=== PATIENT | female | born 1990 | race Caucasian/White ===

== ENCOUNTER 2017-06-03 13:36 | Emergency (ER) | payer SELFPAY ==
[2017-06-03] MEDS ORDERED: Ibuprofen 400 MG Tab PO ONE (13:55)
--- NOTE | 2017-06-03 13:55 | EDM.PDOC ---
ED HPI GENERAL MEDICAL PROBLEM - General Chief Complaint: Fever Stated Complaint: FEVER Time Seen by Provider: 06/03/17 13:52 Source of Information: Reports: Patient History Limitations: Reports: No Limitations - History of Present Illness INITIAL COMMENTS - FREE TEXT/NARRATIVE: HISTORY AND PHYSICAL: 26-year-old female presenting with cough and flulike symptoms History of Present Illness: []Patient has been sick for the last 2-1/2-3 days Patient started out with feeling heaviness in her chest and coughing now has been running a fever taking [place] flu medication Review of Systems: As per history of present illness and below otherwise all systems reviewed and negative. Past medical history: As per history of present illness and as reviewed below otherwise noncontributory. Surgical history: As per history of present illness and as reviewed below otherwise noncontributory. Social history: No reported history of drug or alcohol abuse. Family history: As per history of present illness and as reviewed below otherwise noncontributory. Physical exam: Alert and oriented young woman who answers questions appropriately she is speaking quite Hoarsely and coughs with speaking. HEENT: Atraumatic, normocehpalic, pupils reactive, negative for conjunctival pallor or scleral icterus, mucous membranes moist, throat clear, neck supple, nontender, trachea midline. Mild erythema noted to tonsillar area bilaterally Lungs: Clear to auscultation, breath sounds equal bilaterally, chest non tender. Heart: S1S2, regular, negative for clicks, rubs, or JVD. Abdomen: Soft, nondistended, nontender. Negative for masses or hepatossplenmegaly. Negative for costovertebral tenderness. Pelvis: Stable nontender. Genitourinary: Deferred. Rectal: Deferred Extremities: Atraumatic, negative for cords or calf pain. Neurovascular unremarkable. Neuro: Awake, alert, oriented. Cranial nerves II through XII unremarkable. Cerebellum unremarkable. Motor and sensory unremarkable throughout. Exam nonfocal. Discussed with the patient that she is positive for flu Diagnostics: [Influenza rapid strep] Therapeutics: [Motrin] Impression: [Influenza a] Plan: [Discharged to home Place on Tamiflu 75 mg twice a day 5 days Continue with your symptomatic cares for discomfort Return to emergency room with your symptoms worsen Follow-up with your PCP next week ] Definitive disposition and diagnosis as appropriate pending reevaluation and review of above. Onset: Gradual Duration: Day(s): (3), Getting Worse Location: Reports: Chest Rt. Ear Pain Score (Numeric/FACES): 4 - Related Data Allergies Allergy/AdvReac Type Severity Reaction Status Date / Time No Known Allergies Allergy Verified 06/03/17 13:52 Home Meds: Home Meds Oseltamivir [Tamiflu] 75 mg PO BID #10 cap 06/03/17 [Rx] ED ROS ENT - Review of Systems Review Of Systems: ROS reveals no pertinent complaints other than HPI. ED EXAM, ENT - Physical Exam Exam: See Below (see dictation) Course - Vital Signs Last Recorded V/S: Last Vital Signs Temp 37.8 C 06/03/17 14:19 Pulse 117 H 06/03/17 13:45 Resp 18 06/03/17 13:45 BP 119/69 06/03/17 13:45 Pulse Ox 99 06/03/17 13:45 - Orders/Labs/Meds Orders: Active Orders 24 hr Category Date Time Status CULTURE STREP A CONFIRMATION [RM] Stat Lab 06/03/17 13:45 Results STREP SCRN A RAPID W CULT CONF [RM] Stat Lab 06/03/17 13:45 Results Meds: Medications Discontinued Medications Generic Name Dose Route Start Last Admin Trade Name Freq PRN Reason Stop Dose Admin Ibuprofen 400 mg 06/03/17 13:55 06/03/17 14:19 Motrin PO 06/03/17 13:56 400 mg ONETIME ONE Administration Departure - Departure Time of Disposition: 14:45 Disposition: Home, Self-Care 01 Condition: Good Clinical Impression: Influenza - Discharge Information Prescriptions: Oseltamivir [Tamiflu] 75 mg PO BID #10 cap Referrals: PCP,None [Primary Care Provider] - Forms: ED Department Discharge Additional Instructions: The following information is given to patients seen in the emergency department who are being discharged to home. This information is to outline your options for follow-up care. We provide all patients seen in our emergency department with a follow-up referral. The need for follow-up, as well as the timing and circumstances, are variable depending upon the specifics of your emergency department visit. If you don't have a primary care physician on staff, we will provide you with a referral. We always advise you to contact your personal physician following an emergency department visit to inform them of the circumstance of the visit and for follow-up with them and/or the need for any referrals to a consulting specialist. The emergency department will also refer you to a specialist when appropriate. This referral assures that you have the opportunity for followup care with a specialist. All of these measure are taken in an effort to provide you with optimal care, which includes your followup. Under all circumstances we always encourage you to contact your private physician who remains a resource for coordinating your care. When calling for followup care, please make the office aware that this follow-up is from your recent emergency room visit. If for any reason you are refused follow-up, please contact the [facility] emergency department at and asked to speak to the emergency department charge nurse. You have the flu Tamiflu was prescribed for you to take twice daily Follow-up with your primary care provider next week - My Orders Last 24 Hours: My Active Orders 06/03/17 13:45 CULTURE STREP A CONFIRMATION [RM] Stat STREP SCRN A RAPID W CULT CONF [RM] Stat - Assessment/Plan Last 24 Hours: My Active Orders 06/03/17 13:45 CULTURE STREP A CONFIRMATION [RM] Stat STREP SCRN A RAPID W CULT CONF [RM] Stat
== END 2017-06-03 14:57 | disposition home or self-care (01) ==
LOC: MW.ED 13:36
DX: J10.1 Influenza due to other identified influenza virus with other respiratory manifestations (principal)
CPT/HCPCS: 87081; 87804; 87880; 99283; A9270

== ENCOUNTER 2020-01-01 22:33 | Emergency (ER) | payer MEDICAID ==
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
== END 2020-01-01 23:45 | disposition home or self-care (01) ==
LOC: MW.ED 22:33
DX: O9A.211 Injury, poisoning and certain other consequences of external causes complicating pregnancy, first trimester (principal); S10.91XA Abrasion of unspecified part of neck, initial encounter; Y08.89XA Assault by other specified means, initial encounter; Y92.009 Unspecified place in unspecified non-institutional (private) residence as the place of occurrence of the external cause; Z3A.12 12 weeks gestation of pregnancy
CPT/HCPCS: 99283

== ENCOUNTER 2020-07-11 00:26 | Inpatient (IN) | payer MEDICAID ==
[2020-07-11] MEDS ORDERED: Misoprostol 25 MCG (1/4 of 100 MCG) Tab VAG PRN ×2 (01:46→06:00)
[2020-07-11] MEDS ORDERED: Lidocaine 1% 50 ML MDV INJECT PRN (01:46)
[2020-07-11] MEDS ORDERED: Water For Irrigation,Sterile 1,000 ML Container IRR PRN (01:46)
[2020-07-11] MEDS ORDERED: Ondansetron 4 MG/2 ML SDV IVPUSH PRN (01:46)
[2020-07-11] MEDS ORDERED: Misoprostol 25 MCG (1/4 of 100 MCG) Tab PO PRN ×2 (01:46→06:00)
[2020-07-11] MEDS ORDERED: Sodium Chloride 0.9% 2.5 ML Syringe FLUSH PRN (01:46)
[2020-07-11] MEDS ORDERED: Nalbuphine 10 MG/1 ML Vial IVPUSH PRN (01:46)
[2020-07-11] MEDS ORDERED: Sodium Chloride 0.9% 10 ML SDV IV PRN (01:46)
[2020-07-11] MEDS ORDERED: Misoprostol 200 MCG Tab PO PRN (01:46)
[2020-07-11] MEDS ORDERED: Methylergonovine 0.2 MG/1 ML Amp IM PRN (01:46)
[2020-07-11] MEDS ORDERED: Tranexamic Acid 1,000 MG in Sodium Chloride 0.9% 100 ML IV PRN (01:46)
[2020-07-11] MEDS ORDERED: Butorphanol 1 MG/ML SDV IVPUSH PRN (01:46)
[2020-07-11] MEDS ORDERED: Sodium Chloride 0.9% 10 ML Syringe FLUSH PRN (01:46)
[2020-07-11] MEDS ORDERED: Carboprost Tromethamine 250 MCG/1 ML Amp IM PRN (01:46)
[2020-07-11] MEDS ORDERED: Terbutaline 1 MG/ML SDV SUBCUT PRN (01:46)
[2020-07-11] MEDS ORDERED: Oxytocin/0.9 % Sodium Chloride 30 UNIT/500 ML BAG IV SCH ×2 (02:00)
[2020-07-11] MEDS: Lactated Ringers 1,000 ML IV SCH ×3 (04:07→08:04)
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
[2020-07-11] MEDS ORDERED: Ropivacaine HCl/PF 100 ML ONE (07:02)
[2020-07-11] MEDS ORDERED: fentaNYL 100 MCG/2 ML SDV ONE (07:02)
--- NOTE | 2020-07-11 07:55 | PCM.PREANE ---
Preanesthetic Assessment - Anesthesia/Transfusion/Family Hx Anesthesia History: Prior Anesthesia Without Reaction Family History of Anesthesia Reaction: No Transfusion History: No Prior Transfusion(s) - Physical Assessment NPO Status Date: 07/11/20 NPO Status Time: 00:05 Height: 1.6 m Weight: 61.235 kg ASA Class: 2 - Lab Values: Laboratory Last Values WBC 7.86 K/uL (4.0-11.0) 07/11/20 01:20 RBC 3.42 M/uL (4.30-5.90) L 07/11/20 01:20 Hgb 11.5 g/dL (12.0-16.0) L 07/11/20 01:20 Hct 33.6 % (36.0-46.0) L 07/11/20 01:20 MCV 98.2 fL (80.0-98.0) H 07/11/20 01:20 MCH 33.6 pg (27.0-32.0) H 07/11/20 01:20 MCHC 34.2 g/dL (31.0-37.0) 07/11/20 01:20 RDW Std Deviation 49.7 fl (28.0-62.0) 07/11/20 01:20 RDW Coeff of Roman 14 % (11.0-15.0) 07/11/20 01:20 Plt Count 189 K/uL (150-400) 07/11/20 01:20 MPV 12.00 fL (7.40-12.00) 07/11/20 01:20 Nucleated RBC % 0.0 /100WBC 07/11/20 01:20 Nucleated RBCs # 0 K/uL 07/11/20 01:20 Urine Opiates Screen NEGATIVE (NEGATIVE) 07/11/20 04:00 Ur Oxycodone Screen NEGATIVE (NEGATIVE) 07/11/20 04:00 Urine Methadone Screen NEGATIVE (NEGATIVE) 07/11/20 04:00 Ur Barbiturates Screen NEGATIVE (NEGATIVE) 07/11/20 04:00 Ur Phencyclidine Scrn NEGATIVE (NEGATIVE) 07/11/20 04:00 Ur Amphetamine Screen NEGATIVE (NEGATIVE) 07/11/20 04:00 U Methamphetamines Scrn NEGATIVE (NEGATIVE) 07/11/20 04:00 U Benzodiazepines Scrn NEGATIVE (NEGATIVE) 07/11/20 04:00 U Cocaine Metab Screen NEGATIVE (NEGATIVE) 07/11/20 04:00 U Marijuana (THC) Screen NEGATIVE (NEGATIVE) 07/11/20 04:00 SARS-CoV-2 RNA (SONYA) NEGATIVE (NEGATIVE) 07/11/20 01:20 Blood Type A POSITIVE 07/11/20 01:20 Antibody Screen NEGATIVE 07/11/20 01:20 - Allergies Allergies/Adverse Reactions: Allergies Allergy/AdvReac Type Severity Reaction Status Date / Time No Known Allergies Allergy Verified 07/09/20 08:03 - Acknowledgements Anesthesia Type Planned: Epidural Pt an Appropriate Candidate for the Planned Anesthesia: Yes Alternatives and Risks of Anesthesia Discussed w Pt/Guardian: Yes Pt/Guardian Understands and Agrees with Anesthesia Plan: Yes PreAnesthesia Questionnaire - Past Health History Medical/Surgical History: Denies Medical/Surgical History HEENT History: Reports: None Cardiovascular History: Reports: None Respiratory History: Reports: None Gastrointestinal History: Reports: None Genitourinary History: Reports: None TOP LIFT CUTTER History: Reports: Musculoskeletal History: Reports: None Neurological History: Reports: None Psychiatric History: Reports: None Endocrine/Metabolic History: Reports: None Hematologic History: Reports: None Immunologic History: Reports: None Oncologic (Cancer) History: Reports: None Dermatologic History: Reports: Psoriasis - Infectious Disease History Infectious Disease History: Reports: None - Past Surgical History Head Surgeries/Procedures: Reports: None - SUBSTANCE USE Tobacco Use Status *Q: Never Tobacco User Tobacco Use Within Last Twelve Months: No Second Hand Smoke Exposure: No Recreational Drug Use History: Yes Recreational Drug Type: Reports: Marijuana/Hashish Recreational Drug Last Use: Stated "One month ago" - HOME MEDS Home Medications: Home Meds Pnv No.95/Ferrous Fum/Folic AC [ Multivitamin Tablet] 1 each PO DAILY 07/09/20 [History] - CURRENT (IN HOUSE) MEDS Current Meds: Current Medications Butorphanol Tartrate (Stadol) 1 mg IVPUSH Q1H PRN PRN Reason: Pain Carboprost Tromethamine (Hemabate Ds) 250 mcg IM ASDIRECTED PRN PRN Reason: Post Hemorrhage Oxytocin/Sodium Chloride (Oxytocin 30 Unit/500 Ml-Ns) 30 unit in 500 mls @ 999 mls/hr IV TITRATE DARA Tranexamic Acid 1,000 mg/ (Sodium Chloride) 110 mls @ 660 mls/hr IV ONETIME PRN PRN Reason: Bleeding Oxytocin/Sodium Chloride (Oxytocin 30 Unit/500 Ml-Ns) 30 unit in 500 mls @ 2 mls/hr IV TITRATE DARA; Protocol Last Admin: 07/11/20 04:10 Dose: 2 munits/min, 2 mls/hr Documented by: Lactated Ringer's (Ringers, Lactated) 1,000 mls @ 150 mls/hr IV ASDIRECTED [facility] Last Admin: 07/11/20 04:07 Dose: 999 mls/hr Documented by: Lidocaine HCl (Xylocaine 1%) 50 ml INJECT ONETIME PRN PRN Reason: Laceration repair Methylergonovine Maleate (Methergine) 0.2 mg IM ASDIRECTED PRN PRN Reason: Post Hemorrhage Misoprostol (Cytotec) 200 mcg PO ONETIME PRN PRN Reason: Post Hemorrhage Misoprostol (Cytotec) 25 mcg VAG ONETIME PRN PRN Reason: Cervical Ripening Misoprostol (Cytotec) 25 mcg VAG Q4H PRN PRN Reason: Cervical Ripening Misoprostol (Cytotec) 25 mcg PO ONETIME PRN PRN Reason: Cervical Ripening Misoprostol (Cytotec) 25 mcg PO Q4H PRN PRN Reason: Cervical Ripening Nalbuphine HCl (Nubain) 10 mg IVPUSH Q1H PRN PRN Reason: Pain (severe 7-10) Ondansetron HCl (Zofran) 4 mg IVPUSH Q6H PRN PRN Reason: Nausea/Vomiting Sodium Chloride (Saline Flush) 10 ml FLUSH ASDIRECTED PRN PRN Reason: Keep Vein Open Sodium Chloride (Saline Flush) 2.5 ml FLUSH ASDIRECTED PRN PRN Reason: Keep Vein Open Sodium Chloride (Normal Saline) 10 ml IV ASDIRECTED PRN PRN Reason: IV Use Sterile Water (Sterile Water For Irrigation) 1,000 ml IRR ASDIRECTED PRN PRN Reason: delivery Terbutaline Sulfate (Brethine) 0.25 mg SUBCUT ASDIRECTED PRN PRN Reason: Tacysystole Discontinued Medications Fentanyl (Sublimaze) Confirm Administered Dose 100 mcg .ROUTE .[facility]-MED ONE Stop: 07/11/20 07:03 Ropivacaine (Naropin 0.2%) Confirm Administered Dose 100 mls @ as directed .ROUTE .[facility]-MED ONE Stop: 07/11/20 07:03
--- NOTE | 2020-07-11 07:59 | PCM.PRNOTE ---
- Free Text/Narrative Note: Anes Note Patient requests epidural for L&D. Sitting position. Level L3-L4 midline appraoch. Steril technique. Chloraprep scrub to lumbar area. Sterile fenestrated drape applied. Epidural space easily achieved single attempt with ease using CHRISTINE technique. CHRISTINE at 3 cm . Cath threaded 5 cm with ease. Sterile clear adhesive dressing applied. Test 0751 3 cc 1.5% lido with epi negative. 0754 Load 10 cc 0.2% ropivicaine with 1 mcg cc fentanyl added in slow divided doses. 0759 Pump started with 90 cc same solution. Rate is 8 cc hr with 6 cc q 20 min prn bolus. Mando well. 

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
[2020-07-11] MEDS ORDERED: Acetaminophen 500 MG Tab PO PRN (14:52)
[2020-07-11] MEDS ORDERED: Lanolin 100% Cream 7 GM Tube TOP PRN (14:52)
[2020-07-11] MEDS ORDERED: oxyCODONE 5 MG Tab PO PRN (14:52)
[2020-07-11] MEDS ORDERED: Witch Hazel Medicated Pads 40/Jar TOP PRN (14:52)
[2020-07-11] MEDS ORDERED: Bisacodyl 10 MG Supp RECTAL PRN (14:52)
[2020-07-11] MEDS ORDERED: Ibuprofen 400 MG Tab PO PRN (14:52)
[2020-07-11] MEDS ORDERED: Benzocaine/Menthol 20%-0.5% Spray 78 GM Cannister TOP PRN (14:52)
[2020-07-11] MEDS: Ibuprofen 800 MG Tab PO PRN (21:50)
[2020-07-11] MEDS: Acetaminophen 500 MG Tab PO PRN (21:51)
[2020-07-12] MEDS: Ibuprofen 800 MG Tab PO PRN (04:55)
--- NOTE | 2020-07-12 07:44 | PCM48HPAN ---
Post Anesthesia Note - EVALUATION WITHIN 48HRS OF ANESTHETIC Vital Signs in Normal Range: Yes Patient Participated in Evaluation: Yes Respiratory Function Stable: Yes Airway Patent: Yes Cardiovascular Function Stable: Yes Hydration Status Stable: Yes Pain Control Satisfactory: Yes Nausea and Vomiting Control Satisfactory: Yes Mental Status Recovered: Yes Vital Signs: Last Vital Signs Temp 36.2 C 07/12/20 04:00 Pulse 63 07/12/20 04:00 Resp 16 07/12/20 04:00 BP 98/44 L 07/12/20 04:00 Pulse Ox 98 07/12/20 04:00
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
[2020-07-12] MEDS: Acetaminophen 500 MG Tab PO PRN (09:38)
[2020-07-12] MEDS: Docusate Sodium 100 MG Cap PO PRN (09:39)
[2020-07-13] MEDS: Acetaminophen 500 MG Tab PO PRN (08:15)
[2020-07-13] MEDS: Docusate Sodium 100 MG Cap PO PRN (08:15)
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
== END 2020-07-13 14:02 | disposition home or self-care (01) | DRG 807 ==
LOC: MW.OB 00:26 → OBSVTOIN 01:46 → MW.OB 21:12
PROVIDERS: ADMIT Obstetrics & Gynecology; ATTEND Obstetrics & Gynecology
PROC: 10E0XZZ Delivery of Products of Conception, External Approach (ICD-10-PCS; principal; 2020-07-11)
PROC: 10907ZC Drainage of Amniotic Fluid, Therapeutic from Products of Conception, Via Natural or Artificial Opening (ICD-10-PCS; 2020-07-11)
PROC: 3E0R3BZ Introduction of Anesthetic Agent into Spinal Canal, Percutaneous Approach (ICD-10-PCS; 2020-07-11)
PROC: 00HU33Z Insertion of Infusion Device into Spinal Canal, Percutaneous Approach (ICD-10-PCS; 2020-07-11)
DX: O69.81X0 Labor and delivery complicated by cord around neck, without compression, not applicable or unspecified (principal); Z37.0 Single live birth; Z3A.39 39 weeks gestation of pregnancy; Z20.822 Contact with and (suspected) exposure to COVID-19
CPT/HCPCS: 01967; 36415; 59409; 80305-QW; 85027; 86592; 86850; 86900; 86901; A9270-GY; J2590; J2795; J3010; J7120; U0002

== ENCOUNTER 2024-03-27 02:37 | Emergency (ER) | payer MEDICAID ==
[2024-03-27] MEDS: Acetaminophen/HYDROcodone 325-5 MG Tab PO ONE (03:17)
== END 2024-03-27 03:19 | disposition home or self-care (01) ==
LOC: MW.ED 02:37
DX: K03.81 Cracked tooth (principal); K02.9 Dental caries, unspecified
CPT/HCPCS: 99282; A9270

== ENCOUNTER 2025-03-23 13:00 | Emergency (ER) | payer SELFPAY | END 2025-03-23 14:12 | disposition home or self-care (01) | LOC: MW.ED 13:00 | DX: T81.40XA Infection following a procedure, unspecified, initial encounter (principal); K04.7 Periapical abscess without sinus; Z79.899 Other long term (current) drug therapy | CPT/HCPCS: 99282 ==